=== PATIENT | female | born 1980 | race Caucasian/White ===

== ENCOUNTER 2023-01-22 18:02 | Emergency (ER) | payer OTHER, SELFPAY ==
[2023-01-22 18:04] VITALS: BP 190/108; PULSE 94; RESP 18; TEMP 36.7; O2SAT 98; BMI 47.1
[2023-01-22 20:16] VITALS: PULSE 67; RESP 16; O2SAT 99
--- NOTE | 2023-01-22 21:45 | EKG12_ITS ---
Test Reason : DYSRHYTHMIA Blood Pressure : / mmHG Vent. Rate : 064 BPM Atrial Rate : 064 BPM P-R Int : 162 ms QRS Dur : 088 ms QT Int : 412 ms P-R-T Axes : 027 059 045 degrees QTc Int : 425 ms Normal sinus rhythm Low voltage QRS Borderline ECG Confirmed by MAUDE FERRO, MATTHEW ([id number]), manager editorial JOSE OSBORN ([id number]) on 01/25/2023 1:51:43 PM Referred By: SIMONE Confirmed By:MATTHEW SANTORO MD
--- NOTE | 2023-01-22 21:47 | EX.ED.VIS.PS ---
HPI HPI - Psych History of Present Illness Chief Complaint: Anxiety Narrative Narrative: 42-year-old female presenting with anxiety. She states she has been off of Zoloft for a number of years. She previously had to be on Zoloft because she states he had a mental break. She was in a mental hospital at that point. She transition to a local counselor. She is from [place]. Patient states that she is new to the area. She states her mom called and stated I am coming to get you. She states that because her to be triggered. She states her mom is usually a trigger for her. She is not quite sure why her mom said that. She started to get short of breath and felt tightness across her chest with numbness and tingling in her arms and legs. She states she got up and walked around to kind of clear her head and she got better. She had multiple episodes of this recently. Patient denies cardiac history or lung problems. She states she does have pretty severe anxiety. She typically can cope with it up until the last couple of weeks. She has an appointment at [facility] for a medical evaluation since she is new to the area. She does not have a psychiatric physician. She is not homicidal or suicidal. She is not manic. She not hallucinating. [facility] Medical History Anxiety Home Medications hydroxyzine pamoate 25 mg capsule (Vistaril) 25 mg PO TID PRN anxiety #30 caps 01/22/23 [Rx Last Taken Unknown] Allergy/AdvReac Type Severity Reaction Status Date / Time No Known Allergies Allergy Verified 01/22/23 18:07 Family History Grandfather CVA (cerebral vascular accident) Mother Diabetes Surgical History no surgical history Social History household members: spouse housing: house current occupational status: other current occupation: homemaker Smoking Status: Never smoker EXAM Physical Exam Const Vital Signs: 01/22/23 18:04 01/22/23 20:16 01/22/23 23:39 Temperature 98.1 F Temperature Source Temporal Pulse Rate 94 67 79 Respiratory Rate 18 16 18 Blood Pressure 190/108 H 167/88 H Blood Pressure Mean 135 114 Pulse Ox 98 99 94 Oxygen Delivery Method Room Air Room Air Room Air Positive well nourished General Appearance ED: NAD; Negative for pallor HEENT Reports moist mucous membranes normocephalic and atraumatic Eyes PERRL and EOMs intact bilaterally Resp normal respiratory effort and clear to auscultation bilaterally Auscultation: Negative for rales, rhonchi or wheezes Cardio Rate: regular rate Rhythm: regular rhythm Extremity normal to inspection General Extremety ED: Negative for edema or tenderness General Extremity: Negative for edema Neuro oriented x3, CN's II-XII intact bilaterally and no sensory deficits noted Motor Exam: strength 5/5 throughout Psych mental status grossly normal Appearance: grossly normal Activity / Motor Behavior: appropriate eye contact Speech: normal speech Mood & Affect: anxious Thought Process: normal thought process Thought Content: No suicidality and No homicidality Attention / Concentration: attention grossly intact Memory / Cognition: memory grossly intact Insight: insight good Judgement: judgement good Skin General Skin Exam: Negative for jaundice or pallor MDM MDM MDM Narrative Medical decision making narrative: Patient presenting with anxiety reaction. Tightness and shortness of breath. She has paresthesias. She is concerned her blood pressure is elevated. She does not have a history of hypertension but is very anxious. Blood pressure on arrival was 190/108. I will monitor this. Differential includes but is not limited to ACS, PE, pneumonia, costochondritis, anxiety. Most likely this is anxiety reaction as this is how the patient describes it. She has a history of anxiety and states her mom triggered her. I do believe it is reasonable to get a cardiac work-up. Given this I will check a CBC for white blood cell count, hemoglobin, differential. CMP for liver function, renal function, glucose, anion gap. High-sensitivity troponin will be added. Patient PERC negative. EtOH negative. Drug abuse screen negative serum negative. Patient is not suicidal/homicidal, manic, hallucinating. She seems to have settled down here in the ER. CBC shows white blood cell count 8.5. Hemoglobin 15.5. Platelets normal 333. CMP shows a bilirubin of 1.10, AST 57, ALT 104. Patient states she has a history of alpha-1 antitrypsin deficiency and she states she has had elevated LFTs before. Glucose mildly elevated 129 without anion gap. Electrolytes normal. High-sensitivity troponin is negative. EKG sinus rhythm at 64 bpm without sign of ischemic change or dysrhythmia. Chest x-ray shows no acute process. At this point I do not think anything cardiac. She is PERC negative so I do not believe she has a PE. There is no evidence pneumonia on chest x-ray. Most likely this is anxiety. She was given Vistaril here and a prescription for this for home. She can follow-up with counseling center. She has a follow-up appointment to establish with a primary care provider next week. Patient's blood pressure was also elevated here today. It was 190/108 on initial evaluation its come down to 167/88 without treatment. I recommend she keep a blood pressure diary for follow-up with her PCP. Impression: 1. Chest pain 2. Anxiety 3. Elevated liver enzyme 4. Elevated blood pressure Lab Data Labs: Laboratory Results - last 24 hr 01/22/23 01/22/23 01/22/23 22:25 22:25 22:25 WBC 8.5 RBC 4.90 Hgb 15.5 H Hct 45.5 MCV 92.9 MCH 31.6 MCHC 34.1 RDW Std Deviation 42.9 RDW Coeff of Marcy 12.6 Plt Count 333 MPV 9.8 Immature Gran % (Auto) 0.200 Neut % (Auto) 52.4 Lymph % (Auto) 35.1 [place] % (Auto) 7.4 Eos % (Auto) 4.1 Baso % (Auto) 0.8 Absolute Neuts (auto) 4.4 Absolute Lymphs (auto) 2.98 Nucleated RBC % 0 Sodium 140 Potassium 4.1 Chloride 107 Carbon Dioxide 24.0 Anion Gap 9 BUN 11 Creatinine 0.91 Estim Creat Clear Calc 76.93 Est GFR (MDRD) Af Amer 88 Est GFR (MDRD) Non-Af 73 BUN/Creatinine Ratio 12.1 Glucose 129 H Calcium 9.7 Total Bilirubin 1.10 H AST 57 H ALT 104 H Alkaline Phosphatase 84 Troponin I High Sens Total Protein 7.7 Albumin 4.4 Globulin 3.3 Albumin/Globulin Ratio 1.3 Serum , Qual Urine Color Urine Clarity Urine pH Ur Specific [place] Urine Protein Urine Glucose (UA) Urine Ketones Urine Occult Blood Urine Nitrite Urine Bilirubin Urine Urobilinogen Ur Leukocyte Esterase Urine RBC Urine WBC Ur Squamous Epith Cells Urine Bacteria Urine Mucus Urine Opiates Screen Urine Methadone Screen Ur Barbiturates Screen Ur Phencyclidine Scrn Ur Amphetamines Screen MDMA (Ecstasy) Screen U Benzodiazepines Scrn Urine Cocaine Screen U Cannabinoids Screen Ur Drug Screen Comment Ethyl Alcohol < 3.0 01/22/23 01/22/23 01/22/23 22:25 22:25 22:25 WBC RBC Hgb Hct MCV MCH MCHC RDW Std Deviation RDW Coeff of Marcy Plt Count MPV Immature Gran % (Auto) Neut % (Auto) Lymph % (Auto) [place] % (Auto) Eos % (Auto) Baso % (Auto) Absolute Neuts (auto) Absolute Lymphs (auto) Nucleated RBC % Sodium Potassium Chloride Carbon Dioxide Anion Gap BUN Creatinine Estim Creat Clear Calc Est GFR (MDRD) Af Amer Est GFR (MDRD) Non-Af BUN/Creatinine Ratio Glucose Calcium Total Bilirubin AST ALT Alkaline Phosphatase Troponin I High Sens Total Protein Albumin Globulin Albumin/Globulin Ratio Serum , Qual NEGATIVE Urine Color Yellow Urine Clarity Clear Urine pH 7.0 Ur Specific [place] 1.010 Urine Protein 15 H Urine Glucose (UA) Normal Urine Ketones Negative Urine Occult Blood 250 H Urine Nitrite Negative Urine Bilirubin Negative Urine Urobilinogen Normal Ur Leukocyte Esterase 25 H Urine RBC 0 SEEN Urine WBC 0-5 SEEN Ur Squamous Epith Cells 0-5 SEEN Urine Bacteria 0 SEEN Urine Mucus 0 SEEN Urine Opiates Screen NEGATIVE Urine Methadone Screen NEGATIVE Ur Barbiturates Screen NEGATIVE Ur Phencyclidine Scrn NEGATIVE Ur Amphetamines Screen NEGATIVE MDMA (Ecstasy) Screen NEGATIVE U Benzodiazepines Scrn NEGATIVE Urine Cocaine Screen NEGATIVE U Cannabinoids Screen NEGATIVE Ur Drug Screen Comment Ethyl Alcohol 01/22/23 22:25 WBC RBC Hgb Hct MCV MCH MCHC RDW Std Deviation RDW Coeff of Marcy Plt Count MPV Immature Gran % (Auto) Neut % (Auto) Lymph % (Auto) [place] % (Auto) Eos % (Auto) Baso % (Auto) Absolute Neuts (auto) Absolute Lymphs (auto) Nucleated RBC % Sodium Potassium Chloride Carbon Dioxide Anion Gap BUN Creatinine Estim Creat Clear Calc Est GFR (MDRD) Af Amer Est GFR (MDRD) Non-Af BUN/Creatinine Ratio Glucose Calcium Total Bilirubin AST ALT Alkaline Phosphatase Troponin I High Sens 4 Total Protein Albumin Globulin Albumin/Globulin Ratio Serum , Qual Urine Color Urine Clarity Urine pH Ur Specific [place] Urine Protein Urine Glucose (UA) Urine Ketones Urine Occult Blood Urine Nitrite Urine Bilirubin Urine Urobilinogen Ur Leukocyte Esterase Urine RBC Urine WBC Ur Squamous Epith Cells Urine Bacteria Urine Mucus Urine Opiates Screen Urine Methadone Screen Ur Barbiturates Screen Ur Phencyclidine Scrn Ur Amphetamines Screen MDMA (Ecstasy) Screen U Benzodiazepines Scrn Urine Cocaine Screen U Cannabinoids Screen Ur Drug Screen Comment Ethyl Alcohol Radiography Diagnostic Testing: Clinical Impression(s) from Imaging Studies Chest X-Ray 01/22/23 22:35 IMPRESSION: No radiographic evidence of acute cardiopulmonary disease. Electronically Signed: Toi Flores DO at 22:53 EST Reading Location ID and State: [facility] / [place] Tel [phone], Service support , Discharge Plan Triage Chief Complaint: Anxiety Other Complaint: Hypertension ED Provider: Terrell Hernandez Dx/Rx/DC Orders Instructions: ED Anxiety Reaction, ED Hypertension, To Be Confirmed Prescriptions: New hydroxyzine pamoate [Vistaril] 25 mg capsule 25 mg PO TID PRN (Reason: anxiety) Qty: 30 0RF Primary Care Provider: Care Physician,No Primary Referrals: Counseling,Center [Group of Physicians] - As soon as possible Care Physician,No Primary [Primary Care Provider] - Disposition Disposition: Home, Self Care
[2023-01-22 22:33] LABS: Bacteria 0 SEEN /hpf (None Seen); Mucous, Urine 0 SEEN /hpf (<or=2+); Red Blood Cells-Urine 0 SEEN /hpf (0-5)
--- NOTE | 2023-01-22 22:35 | RAD_ITS ---
INDICATION: Shortness of breath EXAMINATION/TECHNIQUE: X-RAY - XR Chest 1 View COMPARISON: None. FINDINGS: LINES/DEVICES: None. LUNGS: No consolidation, edema or effusion. No pneumothorax. MEDIASTINUM AND CARDIOVASCULAR STRUCTURES: Cardiac silhouette not enlarged. Central airways and mediastinal contour are unremarkable. BONES AND SOFT TISSUES: Unremarkable. RAD/Chest 1 View (Portable) IMPRESSION: No radiographic evidence of acute cardiopulmonary disease. Electronically Signed: Toi Flores DO at 22:53 EST ,
[2023-01-22 22:45] LABS: Absolute Lymphocyte Count 2.98 X10^3/uL (0.83-4.51); Absolute Neutrophil Count 4.4 X10^3/uL (2.0-7.7); Basophil# 0.07 X10^3/uL; Basophil% 0.8 % (0-1); Eosinophil# 0.35 X10^3/uL; Eosinophils% 4.1 % (0-5); Hematocrit 45.5 % (37-47); Hemoglobin 15.5 g/dL (12.0-15.0); Lymphocyte # 2.98 X10^3/ul (0.83-4.51); Lymphocyte % 35.1 % (19-41); Mean Corp Hgb Conc 34.1 g/dL (32-36); Mean Corpuscular Hgb 31.6 pg (27.0-32.0); Mean Corpuscular Volume 92.9 fL (81-99); Mean Platelet Vol. 9.8 fl (6.2-12.0); Monocyte# 0.63 X10^3/uL; Monocyte% 7.4 % (0-10); NRBC Flagged by Analyzer 0 % (0-5); Neutrophil # 4.43 X10^3/uL (2.7-7.7); Neutrophil % 52.4 % (47-70); Platelet Count 333 K/mm3 (150-450); RBC Distribution Width CV 12.6 % (11.6-14.6); RBC Distribution Width SD 42.9 fl (35.1-43.9); White Blood Count 8.5 K/mm3 (4.4-11.0)
[2023-01-22 22:51] LABS: Internal QC Validated? YES +Cl - CLEAR BKGD; Pregnancy, Serum, hCG Quali. NEGATIVE Negative
[2023-01-22 22:53] LABS: Color, Urine Yellow (Yellow); Glucose, Dipstick Normal (Normal); Ketone-Dipstick Negative (Negative); Leukocyte Esterase-Dipstick 25 /ul (Negative); Nitrite-Dipstick Negative (Negative); Occult Blood-Urine 250 /ul (Negative); Protein-Dipstick 15 mg/dl (Negative); Urine Bilirubin Dipstick Negative (Negative); Urine Clarity Clear (Clear); Urine Urobilinogen Normal (Normal)
[2023-01-22 22:54] LABS: Alcohol, Blood (Medical)-Serum < 3.0 mg/dL
[2023-01-22 22:55] LABS: ALB/GLOB Ratio 1.3 RATIO (0.9-2.4); AST(SGOT) 57 U/L (15-37); Alanine Aminotransfer ALT/SGPT 104 U/L (13-56); Albumin, Serum 4.4 g/dL (3.2-5.0); Alkaline Phosphatase 84 U/L (45-117); Amphetamine Urine VISTA NEGATIVE (<1000 ng/mL); Anion Gap 9 (5-15); BUN 11 mg/dL (7-18); BUN/Creat Ratio 12.1 RATIO (10-20); Barbiturate Urine VISTA NEGATIVE (< 200 ng/mL); Benzodiazepine Urine VISTA NEGATIVE (< 200 ng/mL); Calcium,Total 9.7 mg/dL (8.5-10.1); Chloride 107 mmol/L (98-107); Cocaine Urine VISTA NEGATIVE (< 300 ng/mL); Creatinine, Serum 0.91 mg/dL (0.55-1.02); EST Glomerular Filtration Rate 73 mL/min (>60); Ecstacy Urine VISTA NEGATIVE (< 500 ng/mL); Est Glom Filt Rate - Afr Amer 88 mL/min (>60); Estimated Creatinine Clearance 76.93 ml/min; Globulin 3.3 g/dL (2.2-4.2); Glucose 129 mg/dL (74-106); Methadone Urine VISTA NEGATIVE (< 300 ng/mL); PCP Urine VISTA NEGATIVE (< 25 ng/mL); Potassium 4.1 mmol/L (3.5-5.1); Protein, Total 7.7 g/dL (6.4-8.2); Sodium Level 140 mmol/L (136-145); THC Urine VISTA NEGATIVE (< 50 ng/mL); Vista UDS pH Range 7
[2023-01-22 23:20] LABS: Squamous Epithelial Cells - UA 0-5 SEEN /hpf (5-10); White Blood Cells 0-5 SEEN /hpf (0-5)
[2023-01-22 23:39] VITALS: BP 167/88; PULSE 79; RESP 18; O2SAT 94
[2023-01-22] MEDS: hydrOXYzine PAM 25 MG Capsule PO (23:59)
[2023-01-23 00:32] LABS: Troponin-I HS 4 pg/mL (3.0-54.0)
== END 2023-01-23 00:41 | disposition home or self-care (01) ==
PROVIDERS: Emergency Provider Student in an Organized Health Care Education/Training Program; Visit Provider Student in an Organized Health Care Education/Training Program
DX: R07.9 Chest pain, unspecified (principal); F41.9 Anxiety disorder, unspecified; R74.8 Abnormal levels of other serum enzymes; R03.0 Elevated blood-pressure reading, without diagnosis of hypertension
CPT/HCPCS: 36415; 71045; 80053; 80307; 81001; 82077; 84484; 84703; 85025; 93005; 99283